=== PATIENT | female | born 1985 | race American Indian/Alaskan Native ===

== ENCOUNTER 2017-08-17 01:49 | Emergency (ER) | payer SELFPAY ==
--- NOTE | 2017-08-17 04:35 | Emergency Department Report ---
ED Female HPI - General Chief complaint: Urogenital-Female Stated complaint: ITCHING PRIVATE AREA Time Seen by Provider: 08/17/17 03:50 Source: patient Mode of arrival: Ambulatory Limitations: No Limitations - History of Present Illness Initial comments: vaginal itching and swelling x 1 week Complaint: other (vaginal itching ) Onset/Timin -: week(s) Location: labia Radiation: non-radiating Severity: moderate Severity scale (0 -10): 4 Quality: other (itching irritation) Consistency: constant Improves with: none Worsens with: none Are you Now?: No Last Menstrual Period: 07/16/17 EDC: 04/22/18 - Related Data Sexually active: No Previous Rx's Medication Instructions Recorded Last Taken Type Acyclovir [Zovirax Tab] 400 mg PO Q8H #30 tab 08/17/17 Unknown Rx Cephalexin [Keflex] 500 mg PO BID #20 cap 08/17/17 Unknown Rx Ibuprofen 800 mg PO TID PRN #30 tablet 08/17/17 Unknown Rx Allergies Allergy/AdvReac Type Severity Reaction Status Date / Time No Known Allergies Allergy Unverified 08/17/17 03:21 ED Review of Systems ROS: Stated complaint: ITCHING PRIVATE AREA Other details as noted in HPI Constitutional: denies: chills, fever Eyes: denies: eye pain, eye discharge, vision change ENT: denies: ear pain, throat pain Respiratory: denies: cough, shortness of breath, wheezing Cardiovascular: denies: chest pain, palpitations Endocrine: no symptoms reported Gastrointestinal: denies: abdominal pain, nausea, diarrhea Genitourinary: other (rash itching ) Musculoskeletal: denies: back pain, joint swelling, arthralgia Skin: denies: rash, lesions Neurological: denies: headache, weakness, paresthesias Psychiatric: denies: anxiety, depression Hematological/Lymphatic: denies: easy bleeding, easy bruising ED Past Medical Hx - Past Medical History Previous Medical History?: Yes Additional medical history: h/o HPV - Surgical History Past Surgical History?: No - Social History Smoking Status: Current Every Day Smoker Substance Use Type: Alcohol, Marijuana - Medications Home Medications: Home Medications Medication Instructions Recorded Confirmed Last Taken Type Acyclovir [Zovirax Tab] 400 mg PO Q8H #30 tab 08/17/17 Unknown Rx Cephalexin [Keflex] 500 mg PO BID #20 cap 08/17/17 Unknown Rx Ibuprofen 800 mg PO TID PRN #30 tablet 08/17/17 Unknown Rx ED Physical Exam - General Limitations: No Limitations General appearance: alert, in no apparent distress - Head Head exam: Present: atraumatic, normocephalic - Eye Eye exam: Present: normal appearance - ENT ENT exam: Present: mucous membranes moist - Neck Neck exam: Present: normal inspection - Respiratory Respiratory exam: Present: normal lung sounds bilaterally. Absent: respiratory distress - Cardiovascular Cardiovascular Exam: Present: regular rate, normal rhythm. Absent: systolic murmur, diastolic murmur, rubs, gallop - GI/Abdominal GI/Abdominal exam: Present: soft, normal bowel sounds - Rectal Rectal exam: Present: deferred - External exam: Present: lesions (lesions multiple small papular no dicharge no erythema ). Absent: erythema, swelling, lacerations, ecchymosis, bleeding Speculum exam: Present: erythema (moderate erythema white thick discharge ), vaginal discharge. Absent: cervical discharge, vaginal bleeding, foreign body, tissue, laceration - Extremities Exam Extremities exam: Present: normal inspection - Back Exam Back exam: Present: normal inspection, full ROM. Absent: tenderness, CVA tenderness (R), CVA tenderness (L), muscle spasm, paraspinal tenderness, vertebral tenderness, rash noted - Neurological Exam Neurological exam: Present: alert, oriented X3 - Psychiatric Psychiatric exam: Present: normal affect, normal mood - Skin Skin exam: Present: warm, dry, intact, normal color. Absent: rash ED Course Vital Signs 08/17/17 03:13 Temperature 98.8 F Pulse Rate 64 Respiratory 18 Rate Blood Pressure 124/62 O2 Sat by Pulse 100 Oximetry ED Medical Decision Making - Lab Data . Laboratory Tests 08/17/17 05:09 Urine Color Yellow Urine Turbidity Sl. hazy Urine pH 5.0 Ur Specific [place] 1.025 Urine Protein <15 mg/dl Urine Glucose (UA) Neg Urine Ketones Neg Urine Blood Sm Urine Nitrite Neg Urine Bilirubin Neg Urine Urobilinogen < 2.0 Ur Leukocyte Esterase Neg Urine WBC (Auto) 1.0 Urine RBC (Auto) 6.0 U Epithel Cells (Auto) 34.0 H Amorphous Crystals Few Hyaline Casts 3 Urine Mucus 3+ Urine HCG, Qual Negative - Radiology Data Radiology results: report reviewed - Medical Decision Making ua: hcg: negative, tx plan Acyclovir, flagyl and keflex K with transportation supervisor in 2-3 days pt verbalized agreement and understanding of same. pt will followu up wtih pcp in 2-3 days . pt verbalized agreement and understanding of same. , Critical care attestation.: If time is entered above; I have spent that time in minutes in the direct care of this critically ill patient, excluding procedure time. ED Disposition Clinical Impression: BV (bacterial vaginosis) Herpes genitalia Qualifiers: Herpes simplex infection site: vulvovaginitis Qualified Code(s): A60.04 - Herpesviral vulvovaginitis Disposition: - TO HOME OR SELFCARE Is pt being admited?: No Does the pt Need Aspirin: No Condition: Good Instructions: Bacterial Vaginosis (ED), Genital Warts (ED), Genital Herpes Simplex (ED) Prescriptions: Acyclovir [Zovirax Tab] 400 mg PO Q8H #30 tab Cephalexin [Keflex] 500 mg PO BID #20 cap Ibuprofen 800 mg PO TID PRN #30 tablet PRN Reason: pain fever Referrals: [facility] [Outside] - 3-5 Days Forms: STI Treatment and Prevention Time of Disposition: 06:24
[2017-08-17 06:05] LABS: Amorphous Crystals,Urine Few; Bilirubin,Urine NEG (Negative); Blood,Urine SM (Negative); Color,Urine Yellow (Yellow); Hyaline Casts,Urine 3 /LPF; Mucus,Urine 3+ /HPF; Protein,Urine <15 mg/dL mg/dL (Negative); Urobilinogen,Urine < 2.0 mg/dL (<2.0)
[2017-08-17 06:07] LABS: HCG Qualitative,Urine Negative (Negative)
[2017-08-17 06:43] VITALS: BP 124/60
== END 2017-08-17 06:43 | disposition home or self-care (01) ==
LOC: ED 01:49
DX: N76.0 Acute vaginitis (principal); A60.04 Herpesviral vulvovaginitis; B96.89 Other specified bacterial agents as the cause of diseases classified elsewhere; F17.200 Nicotine dependence, unspecified, uncomplicated; F12.90 Cannabis use, unspecified, uncomplicated
CPT/HCPCS: 81001; 81025; 87210; 87591; 99284

== ENCOUNTER 2017-12-09 12:14 | Emergency (ER) | payer SELFPAY ==
[2017-12-09 12:52] VITALS: BP 105/57
--- NOTE | 2017-12-09 15:19 | Emergency Department Report ---
Chief Complaint: Urogenital-Female Stated Complaint: BACK PAIN Time Seen by Provider: 12/09/17 15:12 - HPI History of Present Illness: Patient reports vaginal itching, upper and lower back pain that started several months ago. She denies vaginal discharge, abdominal pain, nausea, vomiting, diarrhea, muscle spasm, saddle paresthesia, dysuria, fever, chronic infections, unexplained weight loss, neuro focal deficits, ambulation, urinary or bowel dysfunction - ROS Review of Systems: All other systems are unremarkable except for documentation in HPI - Exam Vital Signs: Vital Signs 12/09/17 12:48 Temperature 98.6 F Pulse Rate 76 Respiratory 16 Rate Blood Pressure 105/57 O2 Sat by Pulse 99 Oximetry Physical Exam: Neuro: A & O times 3, MAEW, GCS 15, no sensory or focal neuro deficits Resp: lungs CTA bilateral upper and lower lobes, resp even and unlabored, no wheezing, rales, rhonchi or diminished breath sounds Cardio: S1,S2, pulses intact, no ectopy, murmurs or rubs Abdominal: soft, nondistended, normal bowel sounds, nontender, no ascites, distention, Back: nontender, Full ROM, no vertebrae, CVA, muscle spasm or spinal tenderness, Pelvic: vaginal with dry scaly papules pierced by a central hair, no discharge or vaginal bleeding noted MSE screening note: Focused history and physical exam performed. Due to findings the following was ordered: ED Disposition for MSE Condition: Stable Referrals: PRIMARY CARE, [Primary Care Provider] - 3-5 Days
== END 2017-12-09 15:20 ==
LOC: ED 12:14
DX: N89.8 Other specified noninflammatory disorders of vagina (principal)
CPT/HCPCS: 99281